=== PATIENT | female | born 1945 | race Hispanic/Latino ===

== ENCOUNTER 2017-03-23 11:26 | Emergency (ER) | payer MEDICARE ==
[2017-03-23] MEDS ORDERED: LOSARTAN 50 MG TABLET ONE (12:08)
[2017-03-23] MEDS ORDERED: ONDANSETRON HCL 4 MG/2 ML VIAL ONE (12:08)
[2017-03-23 12:12] LABS: BASOPHILS % (AUTO) 0.8 % (0.0-5.0); EOSINOPHILS % (AUTO) 1.4 % (0.0-8.0); HEMATOCRIT 39.2 % (36-48); LYMPHOCYTES % (AUTO) 33.5 % (21.0-51.0); MEAN CORPUSCULAR HEMOGLOBIN 30.3 pg (27.0-33.0); MEAN CORPUSCULAR HGB CONC 34.2 g/dL (32.0-36.0); MEAN CORPUSCULAR VOLUME 88.7 fL (79-99); MONOCYTES % (AUTO) 6.9 % (3.0-13.0); NEUTROPHILS % (AUTO) 57.4 % (40.0-77.0); PLATELET COUNT (AUTO) 217 K/uL (130-400); RED BLOOD CELL COUNT(AUTO) 4.42 MIL/uL (4.00-5.50); RED CELL DISTRIBUTION WIDTH 12.4 % (11.0-15.5); WHITE BLOOD COUNT (AUTO) 6.3 K/uL (4.8-10.8)
[2017-03-23 12:18] LABS: CREATININE 0.9 mg/dL (0.5-1.5); POTASSIUM 3.9 mmol/L (3.5-5.1)
[2017-03-23 12:49] LABS: ALBUMIN 3.7 g/dL (3.5-5.0); BILIRUBIN,TOTAL 0.4 mg/dL (0.2-1.0); CREATINE KINASE MB 0.6 ng/mL (0.5-3.6)
== END 2017-03-23 14:10 | disposition home or self-care (01) ==
LOC: EDH 11:26
DX: I10 Essential (primary) hypertension (principal); R51 Headache; R11.0 Nausea; M81.0 Age-related osteoporosis without current pathological fracture; Z90.49 Acquired absence of other specified parts of digestive tract; Z90.710 Acquired absence of both cervix and uterus
CPT/HCPCS: 36415; 70450; 80053; 82550; 82553; 84484; 85025; 93005; 96374; 99285; J2405

== ENCOUNTER 2017-05-13 16:43 | Emergency (ER) | payer MEDICARE ==
[2017-05-13] MEDS ORDERED: KETOROLAC TROMETHAMINE 15MG/ML ONE (17:08)
== END 2017-05-13 19:09 | disposition home or self-care (01) ==
LOC: EDH 16:43
DX: G44.209 Tension-type headache, unspecified, not intractable (principal); I10 Essential (primary) hypertension; M81.0 Age-related osteoporosis without current pathological fracture
CPT/HCPCS: 96372; 99283; J1885

== ENCOUNTER 2018-11-21 23:28 | Emergency (ER) | payer MEDICARE ==
[2018-11-22 00:17] LABS: BASOPHILS % (AUTO) 2.8 % (0.0-5.0); EOSINOPHILS % (AUTO) 3.8 % (0.0-8.0); HEMATOCRIT 36.9 % (36-48); LYMPHOCYTES % (AUTO) 24.7 % (21.0-51.0); MEAN CORPUSCULAR HEMOGLOBIN 29.6 pg (27.0-33.0); MEAN CORPUSCULAR HGB CONC 33.6 g/dL (32.0-36.0); MEAN CORPUSCULAR VOLUME 88.3 fL (79-99); MONOCYTES % (AUTO) 12.3 % (3.0-13.0); NEUTROPHILS % (AUTO) 56.4 % (40.0-77.0); PLATELET COUNT (AUTO) 169 K/uL (130-400); RED BLOOD CELL COUNT(AUTO) 4.18 MIL/uL (4.00-5.50); RED CELL DISTRIBUTION WIDTH 13.4 % (11.0-15.5); WHITE BLOOD COUNT (AUTO) 4.6 K/uL (4.8-10.8)
[2018-11-22 00:21] LABS: CREATININE 0.6 mg/dL (0.5-1.5); POTASSIUM 3.5 mmol/L (3.5-5.1)
[2018-11-22 00:26] LABS: APPEARANCE,URINE Clear (CLEAR); BILIRUBIN,URINE Negative (NEGATIVE); COLOR,URINE Yellow (YELLOW); GLUCOSE, URINE (UA) Negative (NEGATIVE); KETONES,URINE Negative (NEGATIVE); LEUKOCYTE ESTERASE ,URINE Negative (NEGATIVE); NITRATE,URINE Negative (NEGATIVE); OCCULT BLOOD,URINE Negative (NEGATIVE); PROTEIN,URINE Negative (NEGATIVE); UROBILINOGEN,URINE 0.2 mg/dL (0.2-1.0)
== END 2018-11-22 01:15 | disposition home or self-care (01) ==
LOC: EDH 23:28
DX: I10 Essential (primary) hypertension (principal); M62.81 Muscle weakness (generalized); F41.9 Anxiety disorder, unspecified; Z98.890 Other specified postprocedural states
CPT/HCPCS: 36415; 80048; 81003; 84484; 85025; 93005

== ENCOUNTER 2020-01-09 18:05 | Emergency (ER) | payer MEDICARE | END 2020-01-09 19:36 | disposition home or self-care (01) | LOC: EDH 18:05 | DX: I10 Essential (primary) hypertension (principal); F41.9 Anxiety disorder, unspecified; M81.0 Age-related osteoporosis without current pathological fracture; Z98.890 Other specified postprocedural states; Z90.49 Acquired absence of other specified parts of digestive tract; Z90.710 Acquired absence of both cervix and uterus | CPT/HCPCS: 93005 ==

== ENCOUNTER 2023-08-25 06:59 | Observation (INO) | payer OTHER, MEDICARE ==
[~2023-08-25] VITALS: Ht 162.6 cm; Wt 62.3 kg
[2023-08-25 07:47] LABS: BASOPHILS # (AUTO) 0.05 K/uL (0.00-0.20); BASOPHILS % (AUTO) 1.3 % (0.0-5.0); EOSINOPHILS # (AUTO) 0.03 K/uL (0.00-0.70); EOSINOPHILS % (AUTO) 0.8 % (0.0-8.0); HEMATOCRIT 40.5 % (36-48); IMMATURE GRANULOCYTE ABSOLUTE 0.01 K/uL (0-1); LYMPHOCYTES # (AUTO) 1.3 K/uL (1.0-4.8); LYMPHOCYTES % (AUTO) 33.5 % (21.0-51.0); MEAN CORPUSCULAR HEMOGLOBIN 29.6 pg (27.0-33.0); MEAN CORPUSCULAR HGB CONC 33.3 g/dL (32.0-36.0); MEAN CORPUSCULAR VOLUME 88.8 fL (79-99); MONOCYTES # (AUTO) 0.4 K/uL (0.1-1.0); MONOCYTES % (AUTO) 11.1 % (3.0-13.0); PLATELET COUNT (AUTO) 181 K/uL (130-400); RED BLOOD CELL COUNT(AUTO) 4.56 MIL/uL (4.00-5.50); RED CELL DISTRIBUTION WIDTH 12.9 % (11.0-15.5); WHITE BLOOD COUNT (AUTO) 3.8 K/uL (4.8-10.8)
[2023-08-25 07:59] LABS: SARS-CoV-2, RNA, NAAT NEGATIVE SARS CoV-2 (NEGATIVE)
[2023-08-25 08:05] LABS: ALBUMIN 3.7 g/dL (3.5-5.0); BILIRUBIN,TOTAL 0.5 mg/dL (0.2-1.0); CREATININE 0.8 mg/dL (0.5-1.0); TOTAL PROTEIN, SERUM 7.4 g/dL (6.0-8.3)
[2023-08-25 08:06] LABS: INFLUENZA TYPE A Negative For Type A (NEGATIVE); INFLUENZA TYPE B Negative For Type B (NEGATIVE)
[2023-08-25 08:19] LABS: APPEARANCE,URINE CLEAR (CLEAR); BILIRUBIN,URINE NEGATIVE (NEGATIVE); COLOR,URINE LIGHT-YELLOW (YELLOW); GLUCOSE, URINE (UA) NEGATIVE (NEGATIVE); KETONES,URINE NEGATIVE (NEGATIVE); LEUKOCYTE ESTERASE ,URINE NEGATIVE Leu/uL (NEGATIVE); NITRATE,URINE NEGATIVE (NEGATIVE); OCCULT BLOOD,URINE NEGATIVE (NEGATIVE); PH,URINE 6.5 (5.0-8.0); PROTEIN,URINE 10 mg/dL (NEGATIVE); UROBILINOGEN,URINE 0.2 mg/dL (0.2-1.0)
[2023-08-25 08:19] LABS: B-TYPE NATRIURETIC PEPTIDE 98 pg/mL (0-100)
[2023-08-25 08:22] LABS: ADD UA MICROSCOPIC YES
[2023-08-25 08:25] LABS: BACTERIA,URINE RARE /HPF (None Seen); MUCUS,URINE RARE LPF (None Seen); RBC,URINE 0-1 /HPF (0-1); SQUAMOUS EPITHELIAL CELL,UR RARE /HPF (0-2); WBC,URINE 0-1 /HPF (0-1)
[2023-08-25] MEDS: POTASSIUM BICARB/CIT AC 25 MEQ TABLET.EFF PO ONE (08:37)
[2023-08-25] MEDS ORDERED: ONDANSETRON 4MG INJ IVP PRN (10:00)
[2023-08-25] MEDS ORDERED: MAGNESIUM 2GM PREMIX 50ML 50 ML IV PRN (10:00)
[2023-08-25] MEDS ORDERED: KCL 20 MEQ ERTAB PO PRN (10:00)
[2023-08-25] MEDS ORDERED: ACETAMINOPHEN 325 MG TAB PO PRN (10:00)
[2023-08-25] MEDS: POTASSIUM CHLORIDE 20MEQ/100ML 100 ML IV PRN (10:14)
[2023-08-25 10:35] VITALS: O2SAT 95
[2023-08-25] MEDS ORDERED: DOXA4TAB3 PO (11:28)
[2023-08-25] MEDS ORDERED: AMLO-257 PO (11:28)
[2023-08-25] MEDS ORDERED: LOPE2CAP PO (11:28)
[2023-08-25] MEDS ORDERED: DICY10CA2 PO (11:28)
[2023-08-25] MEDS ORDERED: TERI14TA2 PO (11:28)
[2023-08-25] MEDS ORDERED: CLON0.1T PO (11:28)
[2023-08-25] MEDS ORDERED: RHUB4TAB PO (11:28)
[2023-08-25 11:37] VITALS: BP 130/64; PULSE 87; RESP 18
[2023-08-25] MEDS: POTASSIUM CHLORIDE 10% ELIXIR 20 MEQ/15 ML UDCUP PO PRN (15:43)
[2023-08-25 15:58] VITALS: BP 130/64; PULSE 72; RESP 18
[2023-08-25 20:10] VITALS: O2SAT 97
[2023-08-25 20:33] VITALS: BP 128/61; PULSE 79; RESP 18
[2023-08-26 00:43] VITALS: BP 125/53; PULSE 70; RESP 18
[2023-08-26 04:46] VITALS: BP 130/55; PULSE 64; RESP 18
[2023-08-26 08:00] VITALS: BP 146/66; PULSE 80; RESP 17; O2SAT 98
[2023-08-26] MEDS ORDERED: CLONIDINE HCL 0.1 MG TABLET PO PRN (09:30)
[2023-08-26] MEDS ORDERED: LOPERAMIDE 1 MG/7.5 ML UDCUP PO PRN (09:30)
[2023-08-26] MEDS ORDERED: [UNRECOGNIZED DRUG - OTHER] PO PRN (10:00)
[2023-08-26 10:04] LABS: MAGNESIUM 2.1 mg/dL (1.80-2.40)
[2023-08-26 12:00] VITALS: BP_SYST 118; BP_SYST 151; BP_DIAS 54; BP_DIAS 74; PULSE 63; PULSE 76; RESP 17
[2023-08-26] MEDS ORDERED: DOXAZOSIN MESYLATE 2 MG TABLET PO SCH (21:00)
[2023-08-26] MEDS ORDERED: NON-FORMULARY MEDICATION 1 EACH (Doxazosin Mesylate 4 MG) PO SCH (21:00)
[2023-08-27] MEDS ORDERED: AMLODIPINE 5 MG TAB PO SCH (09:00)
[2023-08-27 18:08] LABS: C DIFFICILE TOXIN A/B Not Detected (Not Detected); ENTEROAGGREGATIVE ECOLI Not Detected (Not Detected); GIARDIA LAMBLIA Not Detected (Not Detected); PLESIOMONAS SHIGELOIDES Not Detected (Not Detected); SAPOVIRUS Not Detected (Not Detected); SHIGELLA/ENTEROINVASIVE E COLI Not Detected (Not Detected); VIBRIO Not Detected (Not Detected); VIBRIO CHOLERAE Not Detected (Not Detected)
== END 2023-08-26 14:05 | disposition home or self-care (01) ==
LOC: EDH 06:59 → INTOOBSV 10:31 → EDHIP 10:31 → 3DH 10:40
PROVIDERS: ADMIT Internal Medicine; ATTEND Internal Medicine
DX: E87.6 Hypokalemia (principal); Z20.822 Contact with and (suspected) exposure to COVID-19; R00.0 Tachycardia, unspecified; R11.0 Nausea; R51.9 Headache, unspecified; R19.7 Diarrhea, unspecified; G35 Multiple sclerosis; I10 Essential (primary) hypertension; D84.821 Immunodeficiency due to drugs; Q33.3 Agenesis of lung; Z79.899 Other long term (current) drug therapy; Z98.890 Other specified postprocedural states
CPT/HCPCS: 96365; 96366; 99285; 82550; 83735 ×2; 84484; 80053; 83880; 85025; 87040 ×2; 87804 ×2; 83605; 87177; 81001; 36415 ×2; 87635; 71045; 93005; 87507; 84132; G0378 ×27; J3480

== ENCOUNTER 2024-06-10 02:18 | Emergency (ER) | payer OTHER, MEDICARE ==
[~2024-06-10] VITALS: Ht 160 cm; Wt 65.8 kg
[~2024-06-10 02:18] MED LIST: AMLO-257 PO; CLON0.1T PO; DICY-20 PO; DOXA4TAB3 PO; LOPE2CAP PO; RHUB4TAB PO; TERI14TA2 PO
--- NOTE | 2024-06-10 02:54 | ERN ---
ED Note History of Present Illness Stated Complaint: CHRONIC BACK PAIN Chief Complaint: Back Pain-No Injury Time Seen by MD: 02:24 Dictation: This is a 78-year-old female who presented to the emergency room as she ran out of her monoclonal antibody, Kesimpta for multiple sclerosis. She stated that she has chronic back pain for many years. No urinary retention or incontinence no hypogastric pain. Her ambulation is limited secondary to the pain and MS. The way she denied any fevers chills or rigors. No hematuria no falls. She is followed by Dr. Ruiz in [facility] for her multiple sclerosis. She was also concerned about hypoglycemia when she checked her sugars at home She eventually told me that she came here to see if she could get monoclonal antibody prescription and a shot. Temperature 98.4 pulse 68 respirations 15 blood pressure 114/76 with a pulse oximetry of 100% on room air Her chronic medical problems include chronic back pain, MS and hypertension Allergies: Coded Allergies: No Known Drug Allergies (Unverified Allergy, Unknown, 11/22/18) Home Meds Reported Medications Rhubarb Root Extract (Estroven Cmplt Menopause Rlf) 4 Mg Tablet, 4 MG PO DAILY PRN for OTHER [SEE ORDER COMMENTS], TAB 08/25/23 Teriflunomide (Aubagio) 14 Mg Tablet, 14 MG PO DAILYLUNCH, TAB 08/25/23 Amlodipine Besylate (Amlodipine Besylate) 5 Mg Tablet, 5 MG PO DAILY, TAB 08/25/23 Loperamide HCl (Loperamide) 2 Mg Capsule, 2 MG PO Q6HPRN PRN for DIARRHEA, CAP 08/25/23 Doxazosin Mesylate (Doxazosin Mesylate) 4 Mg Tablet, 4 MG PO HS, TAB 08/25/23 Clonidine HCl (Clonidine HCl) 0.1 Mg Tablet, 0.1 MG PO DAILY PRN for INCREASED BLOOD PRESSURE, TAB 08/25/23 Dicyclomine HCl (Dicyclomine HCl) 10 Mg Capsule, 10 MG PO Q6HPRN PRN for ABDOMINAL PAIN, CAP 08/25/23 Past Medical History Past Medical History: Hypertension Additional Past Medical Hx: MULTIPLE SCLEROSIS Surgical History: Unknown Family History: Negative Social History: Negative History: Not Applicable RN Note Reviewed/Agreed w/PFSH: Yes Review of System Dictation Constitutional: Negative for fever,chills, and weight loss Eyes: Negative for injury, pain,redness, and discharge ENT: Negative for injury,pain or swelling Cardiovascular: Negative for chest pain, palpitations, and edema Respiratory: Negative for shortness of breath, cough, and wheezing, Abdomen/GI: Negative for abdominal pain, nausea, vomiting, diarrhea, and constipation Back: Negative for injury and positive for chronic back pain : Negative for injury, bleeding and discharge MS/Extremity: Negative for injury and deformity Skin: Negative for rash, and discoloration Neuro: Negative for headache, weakness, numbness, tingling, and seizure Psych: Negative for suicide ideation, homicidal ideation, and hallucinations Initial Vital Sign VS Vital Signs Date Time Temp Pulse Resp B/P (MAP) Pulse Ox O2 Delivery O2 Flow Rate FiO2 06/10/24 02:20 98.4 68 15 114/76 100 Room Air 0 06/10/24 02:51 21 Physical Exam Dictation General: awake, alert, NAD Head/Face: Normocephalic, atraumatic Eyes: PERRL, EOMI, vision at baseline ENT: oral cavity clear, TMs clear, no signs of infection Neck: Trachea midline, supple, no nuchal rigidity Cardiovascular: RRR, normal S1/S2, No MRGs, no JVD Respiratory: CTAB, no respiratory distress, No rales or wheezes Abdomen: Soft, non-tender, non-distended, normal bowel sounds, no guarding or rebound. Skin: Warm, dry, normal turgor, no rash MS/Extremity: Pulses equal, no cyanosis, neurovascular intact, FROM Neuro: COAx4, GCS 15, strength 5/5, CN 2-12 intact, normal cerebellar exam, normal gait, Psych: Normal behavior, mood, and affect normal Extremities-trace edema without any palpable cords, Homans sign is negative Results (Laboratory/Radiology) Laboratory/Radiology Laboratory Tests Test 06/10/24 02:47 06/10/24 06:05 White Blood Count 4.8 K/uL (4.8-10.8) Red Blood Count 4.24 MIL/uL (4.00-5.50) Hemoglobin 12.8 g/dL (12.0-16.0) Hematocrit 39.3 % (36-48) Mean Corpuscular Volume 92.7 fL (79-99) Mean Corpuscular Hemoglobin 30.2 pg (27.0-33.0) Mean Corpuscular Hemoglobin Concent 32.6 g/dL (32.0-36.0) Red Cell Distribution Width 12.3 % (11.0-15.5) Platelet Count 226 K/uL (130-400) Mean Platelet Volume 10.6 fL (7.5-10.5) H Immature Granulocyte % (Auto) 0.4 % (0-1) Neutrophils (%) (Auto) 56.9 % (40.0-77.0) Lymphocytes (%) (Auto) 28.9 % (21.0-51.0) Monocytes (%) (Auto) 11.3 % (3.0-13.0) Eosinophils (%) (Auto) 1.9 % (0.0-8.0) Basophils (%) (Auto) 0.6 % (0.0-5.0) Neutrophils # (Auto) 2.7 K/uL (1.8-7.7) Lymphocytes # (Auto) 1.4 K/uL (1.0-4.8) Monocytes # (Auto) 0.5 K/uL (0.1-1.0) Eosinophils # (Auto) 0.09 K/uL (0.00-0.70) Basophils # (Auto) 0.03 K/uL (0.00-0.20) Absolute Immature Granulocyte (auto 0.02 K/uL (0-1) Nucleated Red Blood Cells 0.0 % (0.0-0.19) Sodium Level 136 mmol/L (136-145) Potassium Level 3.5 mmol/L (3.5-5.1) Chloride Level 100 mmol/L (101-111) L Carbon Dioxide Level 30 mmol/L (21-32) Blood Urea Nitrogen 11 mg/dL (7-18) Creatinine 0.7 mg/dL (0.5-1.0) Glomerular Filtration Rate Calc 89 mL/min (>90) Whole Blood Glucose 92 MG/DL (70-110) Random Glucose 93 mg/dL (70-105) Total Calcium 9.3 mg/dL (8.5-10.1) Urine Color LIGHT-YELLOW (YELLOW) Urine Appearance CLEAR (CLEAR) Urine pH 6.0 (5.0-8.0) Urine Specific Index 1.009 (1.001-1.031) Urine Protein NEGATIVE mg/dL (NEGATIVE) Urine Glucose (UA) NEGATIVE mg/dL (NEGATIVE) Urine Ketones NEGATIVE mg/dL (NEGATIVE) Urine Occult Blood NEGATIVE (NEGATIVE) Urine Nitrate NEGATIVE (NEGATIVE) Urine Bilirubin NEGATIVE mg/dL (NEGATIVE) Urine Urobilinogen 0.2 mg/dL (0.2-1.0) Urine Leukocyte Esterase NEGATIVE Hernandez/uL Labs Reviewed?: Yes ED Course ED Course Orders Procedure Category Date Status Time Urinalysis Profile LAB 06/10/24 Complete 02:51 Cbc With Differential LAB 06/10/24 Complete 02:51 Basic Metabolic Panel LAB 06/10/24 Complete 02:51 Morphine 2mg Syg PHA 06/10/24 Complete (Morphine 2mg Syg) 03:00 Ondansetron 4mg Inj PHA 06/10/24 Complete (Zofran 4mg Inj) 03:30 Current Medications Medications (Trade) Dose Ordered Sig/Chaparro Route PRN Reason Start Time Stop Time Status Last Admin Dose Admin Morphine Sulfate (morPHINE 2MG SYG) 2 mg ONCE ONCE IVP 06/10/24 03:00 06/10/24 03:01 DC 06/10/24 03:02 Ondansetron HCl (zoFRAN 4MG INJ) 4 mg ONCE ONCE IVP 06/10/24 03:30 06/10/24 03:31 DC 06/10/24 03:13 Vital Signs Date Time Temp Pulse Resp B/P (MAP) Pulse Ox O2 Delivery O2 Flow Rate FiO2 06/10/24 06:03 97.5 64 13 141/68 98 Room Air* 0 21 06/10/24 05:00 98.1 58 14 124/53 96 Room Air* 0 21 06/10/24 04:04 98.1 60 16 115/50 96 Room Air* 0 21 06/10/24 02:51 97.9 71 17 132/57 98 Room Air* 0 21 06/10/24 02:20 98.4 68 15 114/76 100 Room Air 0 We will perform diagnostic labs, advanced imaging and administer medications according to the patient's complaint. Once the results are available, will review and personally interpreted the labs to rule out any acute life- threatening emergency the trach require immediate intervention and treatment. I will then re-evaluate the patient after treatment and diagnostic exams have return to determine whether the patient requires any further testing, can safely be discharged home or need further admission to hospital for additional treatment and evaluation. 4:45 a.m. labs reviewed glucose 92, CBC BNP 7 are within normal limits Trial of pain medication--she admits to feeling better 6:28 a.m. I have updated her on labs and we will be discharging her to follow up with her physician Dr. Ruiz I explained to the patient that the specialized medicine has to be prescribed by her physician and it can not be done in the emergency room Medical Decision Making MDM MDM: Differential diagnosis: Chronic back pain, muscle spasms, degenerative disc disease, Rationale: Tests considered and ordered secondary to shared decision making include: Previous outside records reviewed: Old ER visits. Risk of complication and/or morbidity or mortality of patient management: None Medications-Per medication reconciliation Need for hospitalization: Patient does not meet criteria for hospitalization. Need for emergency major/minor surgery: No There are no social concerns with this patient. Prescription drug management Prescriptions will include symptomatic care Patient's prior external medical records from other ER visits were reviewed by me as indicated. Prior testing and results from previous visits were reviewed. Prior tests were taken into account with medical decision making and resource utilization, independent historian/historians were used to obtain complete medical history. I independently interpreted the test that were performed, results were reviewed by me and considered findings on radiology if ordered. Medical management and examination interpretation discussions were had by me with other qualified healthcare professionals as indicated for the patient's care. Problem List Problem List: (1) Chronic low back pain (2) Multiple sclerosis (3) Hypertension DX & DISP Disposition: Discharge Departure Impression: Primary Impression: Chronic low back pain Additional Impressions: Multiple sclerosis, Hypertension Condition: Stable Additional Instructions: Patient and the caregiver have been informed of all the diagnostic tests and the imaging conducted during the today's visit to the emergency room and has verbalized understanding of the results I have personally reviewed and interpreted all diagnostic exams performed here in the ER today as well as the vital signs documented by the nursing staff. The patient is now being discharged to home and should follow up with the primary care physician or the specialist as directed by the ER staff. Follow-up with primary care provider in 1 to 2 days. Take medications as directed here in the emergency room. Okay to continue home medications unless otherwise discussed during your visit in the emergency room today. Return to your nearest emergency room if symptoms worsen or if there is no improvement. Call 911 if you need immediate assistance. Take Tylenol or Motrin [id number] as needed and if no contraindications are present. Increase oral hydration. A wound culture or urine culture was ordered here in the emergency room department please follow-up with primary care provider and advise them to get repeat ports from our facility. If you had any Wagner wrap/splints that were applied here, please do not remove them until you see your primary care or specialty. Referrals: BEN ROBERSON MD (PCP) DIVYA GUERRIER MD Jun 10, 2024 02:54
[2024-06-10] MEDS: morPHINE 2 MG SYG IVP ONE (03:02)
[2024-06-10 03:08] LABS: BASOPHILS # (AUTO) 0.03 K/uL (0.00-0.20); BASOPHILS % (AUTO) 0.6 % (0.0-5.0); EOSINOPHILS # (AUTO) 0.09 K/uL (0.00-0.70); EOSINOPHILS % (AUTO) 1.9 % (0.0-8.0); HEMATOCRIT 39.3 % (36-48); IMMATURE GRANULOCYTE ABSOLUTE 0.02 K/uL (0-1); LYMPHOCYTES # (AUTO) 1.4 K/uL (1.0-4.8); LYMPHOCYTES % (AUTO) 28.9 % (21.0-51.0); MEAN CORPUSCULAR HEMOGLOBIN 30.2 pg (27.0-33.0); MEAN CORPUSCULAR HGB CONC 32.6 g/dL (32.0-36.0); MEAN CORPUSCULAR VOLUME 92.7 fL (79-99); MONOCYTES # (AUTO) 0.5 K/uL (0.1-1.0); MONOCYTES % (AUTO) 11.3 % (3.0-13.0); NEUTROPHILS # (AUTO) 2.7 K/uL (1.8-7.7); NEUTROPHILS % (AUTO) 56.9 % (40.0-77.0); PLATELET COUNT (AUTO) 226 K/uL (130-400); RED BLOOD CELL COUNT(AUTO) 4.24 MIL/uL (4.00-5.50); RED CELL DISTRIBUTION WIDTH 12.3 % (11.0-15.5); WHITE BLOOD COUNT (AUTO) 4.8 K/uL (4.8-10.8)
[2024-06-10] MEDS: ondanSETRON 4MG INJ IVP ONE (03:13)
[2024-06-10 03:16] LABS: CREATININE 0.7 mg/dL (0.5-1.0); POTASSIUM 3.5 mmol/L (3.5-5.1)
[2024-06-10 06:26] LABS: APPEARANCE,URINE CLEAR (CLEAR); BILIRUBIN,URINE NEGATIVE (NEGATIVE); COLOR,URINE LIGHT-YELLOW (YELLOW); GLUCOSE, URINE (UA) NEGATIVE (NEGATIVE); KETONES,URINE NEGATIVE (NEGATIVE); LEUKOCYTE ESTERASE ,URINE NEGATIVE Leu/uL (NEGATIVE); NITRATE,URINE NEGATIVE (NEGATIVE); OCCULT BLOOD,URINE NEGATIVE (NEGATIVE); PROTEIN,URINE NEGATIVE (NEGATIVE); UROBILINOGEN,URINE 0.2 mg/dL (0.2-1.0)
[2024-06-10 06:27] LABS: ADD UA MICROSCOPIC NO
--- NOTE | 2024-06-10 07:30 | NUR ---
CALLED EMS FOR TRANSFER, RECENT PCS FORM AGAIN
[2024-06-10 10:13] VITALS: BP 127/57; PULSE 62; RESP 16; TEMP 98; O2SAT 100
== END 2024-06-10 12:53 | disposition home or self-care (01) ==
LOC: EDH 02:18
DX: G89.29 Other chronic pain (principal); M54.50 Low back pain, unspecified; G35 Multiple sclerosis; I10 Essential (primary) hypertension; Z76.0 Encounter for issue of repeat prescription; Z79.899 Other long term (current) drug therapy
CPT/HCPCS: 99285; 96374; 96375; 80048; 85025; 82948; 81003; 36415; J2270; J2405